=== PATIENT | female | born 1970 | race Caucasian/White ===

== ENCOUNTER 2017-07-28 15:30 | Emergency (ER) | payer MEDICAID ==
[~2017-07-28] VITALS: Ht 152.4 cm; Wt 65.8 kg
[2017-07-28 15:57] VITALS: Ht 152.4 cm; Wt 65.8 kg
[2017-07-28 17:45] VITALS: BP 155/92
== END 2017-07-28 17:45 | disposition home or self-care (01) ==
LOC: ED 15:30
DX: J45.901 Unspecified asthma with (acute) exacerbation (principal); I10 Essential (primary) hypertension; Z88.6 Allergy status to analgesic agent
CPT/HCPCS: J7512; J7613

== ENCOUNTER 2018-04-01 10:20 | Emergency (ER) | payer MEDICAID ==
[~2018-04-01] VITALS: Ht 160 cm; Wt 93.0 kg
[2018-04-01 10:26] VITALS: Ht 160 cm; Wt 93.0 kg
[2018-04-01 11:11] LABS: BASOPHIL % 0.3 % (0-2); PLATELET COUNT 385 x10^3mcL (130-400); RED CELL DISTRIBUTION WIDTH 12.8 % (11.5-14.5)
[2018-04-01 11:17] LABS: CALCIUM 8.5 mg/dL (8.5-10.1); CARBON DIOXIDE 28.9 mmol/L (21-32); CHLORIDE SERUM 102 mmol/L (98-107); CREATININE SERUM 0.5 mg/dL (0.6-1.0); GFR1 > 60 mL/min; GLUCOSE SERUM 102 mg/dL (74-106); POTASSIUM SERUM 3.4 mmol/L (3.5-5.1); SODIUM SERUM 138 mmol/L (136-145)
[2018-04-01 11:29] LABS: ALBUMIN 3.7 g/dL (3.4-5.0); ALKALINE PHOSPHATASE 69 U/L (46-116); ALT/SGPT 27 U/L (14-59); AST/SGOT 20 U/L (15-37); BILIRUBIN TOTAL 0.36 mg/dL (0.20-1.00); FREE T4 0.88 ng/dL (0.76-1.46); MAGNESIUM 2.1 mg/dL (1.8-2.4); TOTAL PROTEIN, SERUM 7.5 g/dL (6.4-8.2)
[2018-04-01 16:31] VITALS: BP 148/89
== END 2018-04-01 16:31 | disposition home or self-care (01) ==
LOC: ED 10:20
PROVIDERS: Emergency Medicine
DX: J45.901 Unspecified asthma with (acute) exacerbation (principal); I10 Essential (primary) hypertension; Z88.6 Allergy status to analgesic agent
CPT/HCPCS: 83880; 84439; 85378; 87804; J2930; J3475; J7620; Q0092